=== PATIENT | male | born 1995 | race Asian ===

== ENCOUNTER 2017-04-01 13:44 | Emergency (ER) | payer OTHER ==
[~2017-04-01] VITALS: Ht 170.2 cm; Wt 70.3 kg
--- NOTE | 2017-04-01 14:28 | ED Upper Extremity ---
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 He states that he punched a wall and broke his metacarpal. He was supposed to have follow-up within the upcoming weeks but the required that he return home for a brief period of time. He states that he did injure it while at basic training but it was not a result of training activities. He resides here in [place] and would like to get the splint off. Onset: this evening (sisters E) Severity: moderate Pain/Injury Location: left hand Method of Injury: direct blow Modifying Factors: Worse With Movement Constitutional: see HPI EENTM: see HPI Respiratory: no symptoms reported Cardiovascular: no symptoms reported Genitourinary: no symptoms reported Musculoskeletal: see HPI Skin: no symptoms reported Psychiatric/Neurological: No Symptoms Reported Past Bufidvp-Ykcdez-Eqzmec Hx Patient Social History Recent Foreign Travel: No Contact w/Someone Who Travel: No Physical Exam Vital Signs Capillary Refill : General Appearance: WD/WN, no apparent distress HEENT: PERRL/EOMI, normal ENT inspection Neck: non-tender, full range of motion Respiratory: no respiratory distress, no accessory muscle use Gastrointestinal: non tender, soft Elbow/Forearm: normal inspection, non-tender Wrist: Yes normal inspection, Yes non-tender Hand: normal inspection, non-tender Neurologic/Psychiatric: alert, normal mood/affect, oriented x 3 Skin: normal color, warm/dry Departure Communication (Admissions) Progress Notes NAME: ANTHONY BRICE MED REC#: [id number] PT STATUS: REG ER : 1995 PHYSICIAN: CURLY DELGADO MD ADMIT DATE: 04/01/17/ER Draft Date of Exam:04/01/17 HAND, LEFT, 3 VIEWS 3 views of the left hand. INDICATION: Injury. The patient has a cast. FINDINGS: Artifacts from cast presence is seen. There is an angulated fracture to the dorsal aspect seen at the midshaft of the fourth metacarpal. The joints demonstrate no subluxation or dislocation. No other fracture is identified. IMPRESSION: Mildly displaced and dorsally angulated fracture of the fourth metacarpal midshaft. Dictated on workstation # [id number] Dict: 04/01/17 1436 Trans: 04/01/17 1441 [id number] Interpreted by: TANMAY SANABRIA MD Electronically signed by: Communication (PCP) The patients dorsal splint was removed, an ulnar gutter style splint was placed. I did call and leave pts contact info with Dr Tubbs. Impression Impression: Primary Impression: Metacarpal bone fracture Disposition: HOME, SELF-CARE Condition: Stable Departure-Patient Inst. Decision time for Depature: 14:39 Referrals: LUIS MCCARTHY,LOCAL PHYSICIAN (PCP) Primary Care Physician TEDYD NAIK MD Patient Instructions: Hand Fracture (DC) Add. Discharge Instructions: 1. KEep the splint on at all times until you are seen by Dr Mccarthy. If his office does not call today or tomorrow, call Dr Naik. All discharge instructions reviewed with patient and/or family. Voiced understanding. Copy Copies To 1: LUIS MCCARTHY PETER J APRN Apr 01, 2017 14:28
--- NOTE | 2017-04-01 14:42 | Diagnostic Imaging Report ---
3 views of the left hand. INDICATION: Injury. The patient has a cast. FINDINGS: Artifacts from cast presence is seen. There is an angulated fracture to the dorsal aspect seen at the midshaft of the fourth metacarpal. The joints demonstrate no subluxation or dislocation. No other fracture is identified. IMPRESSION: Mildly displaced and dorsally angulated fracture of the fourth metacarpal midshaft. Dictated by: Dictated on workstation # [id number]
[2017-04-01 15:15] VITALS: BP 126/70
== END 2017-04-01 15:15 | disposition home or self-care (01) ==
LOC: ER 13:50
DX: S62.325D Displaced fracture of shaft of fourth metacarpal bone, left hand, subsequent encounter for fracture with routine healing (principal); W22.01XD Walked into wall, subsequent encounter
CPT/HCPCS: 29125; 73130

== ENCOUNTER → 2021-12-01 | Outpatient (REF) ==
--- NOTE | 2021-12-01 16:38 | Diagnostic Imaging Report ---
EXAMINATION: Chest 2 view HISTORY: POSITIVE TB BLOOD TEST COMPARISON: None available. FINDINGS: Heart size and pulmonary vasculature are normal. The lungs are clear without consolidation, pleural effusion, or pneumothorax. The osseous structures are intact. IMPRESSION: 1. No acute radiographic abnormality in the chest. Dictated by: Dictated on workstation # [id number]
== END ==
LOC: OCC 15:53
PROVIDERS: ATTEND Nurse Practitioner Family
DX: R76.11 Nonspecific reaction to tuberculin skin test without active tuberculosis (principal)
CPT/HCPCS: 71046